=== PATIENT | male | born 1960 | race Caucasian/White ===

== ENCOUNTER 2019-10-15 08:19 | Emergency (ER) | payer BC, SELFPAY ==
[2019-10-15 08:38] VITALS: BP 127/85; PULSE 76; RESP 16; TEMP 35.7; O2SAT 96
--- NOTE | 2019-10-15 08:40 | ECG_ITS ---
Measurements Intervals [place] Rate: 76 P: 50 NE: 154 QRS: -28 QRSD: 98 T: 9 QT: 373 QTc: 421 Interpretive Statements SINUS RHYTHM BORDERLINE T WAVE ABNORMALITY- INFERIOR LEADS BASELINE ARTIFACT- II, III, AVR, AVF BORDERLINE ECG Electronically Signed On 10-15-2019 11:07:35 CDT by Terrence Thorpe D.O.
--- NOTE | 2019-10-15 08:52 | ED.ARRPALP ---
HPI - Arrhythmia/Palpitations General Chief Complaint: Arrhythmia/Palpitations Stated Complaint: heart palpitation/dizziness/sob Time Seen by Provider: 10/15/19 08:39 Source: patient and RN notes reviewed Mode of arrival: ambulatory Limitations: no limitations History of Present Illness HPI narrative: Patient presents today complaining of palpitations and fluttering in his heart yesterday while working in the yard. Reports he worked in his yard in the heat for several hours without drinking any fluids. At that time he was also dizzy and mildly short of breath. At the time, he got an alert on his apple watch stating his pulse was in the 180s. Denies chest pain at that time, or currently. He rested last night and believed he was feeling better. This morning he was walking up a small hill at work when he arrived, causing shortness of breath and mild dizziness and sweating. Denies abdominal pain, nausea, vomiting, or recent illness. He has tried no OTC interventions at home prior to arrival. Denies cardiac hx. Former smoker. Father of heart disease. MD complaint: palpitations Related Data Home Medications Medication Instructions Recorded Confirmed No Home Medications 10/15/19 10/15/19 Allergies Allergy/AdvReac Type Severity Reaction Status Date / Time codeine Allergy Severe ??/ANAPHYLACTIC Unverified 10/15/19 08:24 REACTION Review of Systems Review of Systems: Narrative: CONSTITUTIONAL: Denies body aches, fever, chills. +Diaphoresis EYES: Denies visual changes, redness, or discharge. ENT: Denies rhinorrhea, congestion, sore throat, or otalgia. CARDIOVASCULAR: Denies chest pain, or edema. +Racing heart beat RESPIRATORY: Denies cough. Shortness of breath GASTROINTESTINAL: Denies abdominal pain, nausea, vomiting, or diarrhea. GENITOURINARY: Denies dysuria or hematuria. SKIN: Denies rash, itching, or wounds. MUSCULOSKELETAL: Denies back pain, joint pain, or myalgia. NEUROLOGIC: Denies headache, numbness, tingling, or weakness.+Dizziness. PSYCH: Denies depression or anxiety. [facility] Social History Social History (Updated 10/15/19 @ 09:19 by Maegan Prado, [employer] WORK[employer], ) Smoking status: Former smoker Comments At time of signature, I have reviewed and agree with nursing past medical, surgical, social and family history unless otherwise noted. Please see nursing chart for further information. There is no relevant family history pertinent to the presenting complaint Exam Narrative: Exam Narrative: GENERAL: Well-appearing, well-nourished, and in no acute distress. No diaphoresis. HEAD: Normocephalic, atraumatic. EYES: EOMI. No redness or drainage. Conjunctivae normal. ENT: Mucous membranes pink and moist. NECK: Normal AROM. Supple. No lymphadenopathy. CHEST: No respiratory distress. Clear to auscultation. HEART: Regular rate and rhythm. No murmur appreciated. Normal peripheral pulses. ABDOMEN: Soft, nontender, nondistended, normal active bowel sounds. MUSCULOSKELETAL: No bony tenderness. EXTREMITIES: Normal range of motion. No edema. SKIN: Warm, dry, no rash. Capillary refill normal. Normal skin turgor. NEURO: No focal deficits. Alert and oriented x3. Gait steady. PSYCH: Normal affect. No signs of depression or anxiety. Course Course Emergency Course: Discussed symptoms and plan with patient. He declines transfer to the ER for further evaluation. Patient is ANO x4 and does not seem under the influence of drugs or alcohol, and able to make his own medical decisions. He understands he is leaving AGAINST MEDICAL ADVICE. Promises to go to the ER if symptoms worsen. Vital Signs Vital signs: Vital Signs Temperature 96.2 F L 10/15/19 08:38 Pulse Rate 76 10/15/19 08:38 Respiratory Rate 16 10/15/19 08:38 Blood Pressure 127/85 10/15/19 08:38 Pulse Oximetry 96 10/15/19 08:38 Temperature 96.2 F L 10/15/19 08:38 Pulse Rate 76 10/15/19 08:38 Respiratory Rate 16 10/15/19
[2019-10-15 08:57] VITALS: BP 130/82; PULSE 78; RESP 17; TEMP 36.6; O2SAT 97
== END 2019-10-15 08:57 | disposition left against medical advice (07) ==
PROVIDERS: Emergency Provider Nurse Practitioner
DX: R00.2 Palpitations (principal); R06.02 Shortness of breath; R42 Dizziness and giddiness; Z87.891 Personal history of nicotine dependence; Z82.49 Family history of ischemic heart disease and other diseases of the circulatory system
CPT/HCPCS: 93005; 99213; G0463

== ENCOUNTER 2019-12-15 08:32 | Emergency (ER) | payer BC, SELFPAY ==
--- NOTE | 2019-12-15 08:40 | ED.EAR ---
HPI - Ear Problem General Chief complaint: Ear Stated complaint: right ear pain Time Seen by Provider: 12/15/19 08:40 Source: patient Mode of arrival: ambulatory Limitations: no limitations History of Present Illness HPI Narrative: Susanne Devlin is a 59 yo male with no PMH who comes to express care with complaints of right ear pain and some sinus drainage for the last couple of days. Pain bilaterally initially but is centralized on the right ear he has difficulty opening his mouth pain posterior anterior to canal opening. Denies swimming or any activity where his head is submersed Related Data Allergies Allergy/AdvReac Type Severity Reaction Status Date / Time codeine Allergy Severe ??/ANAPHYLACTIC Unverified 10/15/19 08:24 REACTION Review of Systems Review of Systems: Narrative: CONSTITUTIONAL: Denies fever, chills, sweats. EYES: Denies visual changes, redness, discharge. ENT: Has rhinorrhea, congestion, sore throat, has right otalgia. CARDIOVASCULAR: Denies chest pain, palpitations, edema. RESPIRATORY: Denies dyspnea, wheezing, cough GASTROINTESTINAL: Denies abdominal pain, nausea, vomiting, diarrhea. GENITOURINARY: Denies dysuria, hematuria, abnormal discharge SKIN: Denies rash or itching. NEUROLOGIC: Denies numbness, or focal weakness. PSYCHIATRIC: Denies anxiety or depression. PMFSH Family History Family History Other Heart disease Hypertension Social History Social History (Updated 12/15/19 @ 08:53 by Marina Tello CNP) Smoking status: Former smoker Alcohol intake: current Alcohol use details: Daily drinking of beer Comments At time of signature, I agree with nursing past medical, surgical, social and family history. There is no relevant family history pertinent to the presenting complaint. Exam Narrative: Exam Narrative: GENERAL: This is a well-nourished, well-developed patient, in mild distress. HEAD: normocephalic, atraumatic. EYES:Sclera clear/white. Vision is grossly intact. EARS: External ears normal on L, red on R, auditory canals clear on left and edema on right, exquisitely tender on right TMs normal without perforation. Hearing grossly intact. Tenderness anterior posterior to tragus NOSE: External nose normal without nasal discharge, nares without redness, mild bilateral rhinorrhea. THROAT: Mucous membranes moist, posterior pharynx erythema NECK: Neck supple, non-tender CARDIOVASCULAR: Regular rate and rhythm without murmurs, gallops, or rubs. RESPIRATORY: Clear to auscultation. Breath sounds equal bilaterally. No wheezes, rales, or rhonchi. GASTROINTESTINAL: Abdomen soft, non-tender, SKIN: warm, intact with no suspicious lesions or rash, good texture and turgor. NEURO: awake, alert, and oriented to person, place and time. There were no obvious focal neurologic abnormalities. Steady gait EXTREMITIES: Normal range of motion. BACK: Nontender without deformity Course Course Emergency Course: Started on Mucinex as well as eardrops and oral antibiotic Vital Signs Vital signs: Vital Signs Temperature 98.2 F 12/15/19 08:41 Pulse Rate 66 12/15/19 08:41 Respiratory Rate 16 12/15/19 08:41 Blood Pressure 151/87 H 12/15/19 08:41 Pulse Oximetry 97 12/15/19 08:41 Temperature 98.2 F 12/15/19 08:41 Pulse Rate 66 12/15/19 08:41 Respiratory Rate 16 12/15/19 08:41 Blood Pressure 151/87 H 12/15/19 08:41 Pulse Oximetry 97 12/15/19 08:41 Medical Decision Making Differential Diagnosis Differential Diagnosis: Otitis media versus otitis externa versus sinusitis Vital Signs Vital Signs: Vital Signs Temperature 98.2 F 12/15/19 08:41 Pulse Rate 66 12/15/19 08:41 Respiratory Rate 16 12/15/19 08:41 Blood Pressure 151/87 H 12/15/19 08:41 Pulse Oximetry 97 12/15/19 08:41 Temperature 98.2 F 12/15/19 08:41 Pulse Rate 66 12/15/19 08:41 Respiratory Rate 16 12/15/19 08:4
[2019-12-15 08:41] VITALS: BP 151/87; PULSE 66; RESP 16; TEMP 36.8; O2SAT 97
== END 2019-12-15 09:06 | disposition home or self-care (01) ==
PROVIDERS: Emergency Provider Nurse Practitioner
DX: H60.311 Diffuse otitis externa, right ear (principal); J01.10 Acute frontal sinusitis, unspecified; Z87.891 Personal history of nicotine dependence
CPT/HCPCS: 99213; G0463